=== PATIENT | female | born 1975 | race African-American/Black ===

== ENCOUNTER 2020-02-07 00:14 | Day surgery (SDC) | payer OTHER, SELFPAY ==
[2020-01-31 11:47] VITALS: BMI 32.5
--- NOTE | 2020-02-06 14:18 | WPDANESEPPF ---
Anes - Initial Pre Proc Eval Procedure: Operation Date: 02/07/20 14:15 Proposed Procedures p Hysteroscopy, Mai Endometrial Ablation - Ricco Mar MD Date/Time: 02/06/20 14:18 Surgeon: Ricco Mar MD Pre Op Diagnosis: Menorrhagia Patient Data Age: 44 Gender: F Height: 1.64 m Weight: 87.54 kg Allergies Allergy/AdvReac Type Severity Reaction Status Date / Time No Known Allergies Allergy Verified 02/07/20 13:16 Home Medications Medication Instructions Recorded Confirmed Type ascorbate calcium (vitamin C) 1,000 mg PO DAILY 01/31/20 02/05/20 History cholecalciferol (vitamin D3) 125 mcg PO DAILY 01/31/20 02/05/20 History ferrous sulfate 325 mg PO DAILY 01/31/20 02/05/20 History folic acid 1 mg PO DAILY 01/31/20 02/05/20 History vitamin B complex [B 1 tablet PO DAILY 01/31/20 02/05/20 History Complex-Vitamin B12] Patient hx anesthesia problems: none Family hx anesthesia problems: none [facility] Past Medical History Medical History (Updated 02/06/20 @ 14:18 by Domingo Powell DO) Anemia Social History Social History Smoking status: Never smoker Living arrangements: with family Spiritual care concerns: No Anes - Eval Final PreProcedure Day of Procedure 02/06/20 14:18 Patient weight: obese Heart: regular rate and rhythm Lungs: clear to auscultation and normal air movement Airway: Mallampati scale class II Neurological: alert and oriented Last oral intake: >/= 8 hours ASA classification: II Emergent: no Anesthetic plan: proceed Anesthesia type and monitoring: general GIVS and standard monitoring Informed Consent: The patient's anesthetic plan and its attendant risks and benefits were discussed with the patient/family/POA. Questions were solicited and answers provided to the satisfaction of the patient/family/POA.
[2020-02-07] VITALS (7 sets, daily range): BP systolic 109–186; BP diastolic 79–112; PULSE 75–95; RESP 14–20; TEMP 36.4; O2SAT 96–99
[2020-02-07] MEDS: ACETAMINOPHEN 500 MG TABLET 1000 MG PO (12:23)
[2020-02-07] MEDS: LACTATED RINGERS 1,000 ML 30 ML IV CONT (12:52)
--- NOTE | 2020-02-07 15:08 | WPDHPUPDATE1 ---
History and Physical Update Update Date/Time: 02/07/20 15:08 History and Physical has been reviewed, including an updated exam of the patient. There are NO changes in the patient's condition. Risks, benefits, and alternatives have been discussed and questions answered. Patient agrees to proceed with procedure.
--- NOTE | 2020-02-07 15:58 | SUR.OPER ---
Hysteroscopy irrigation 650ml in and 650ml out
--- NOTE | 2020-02-07 16:10 | PM.PROC ---
Procedure Note - Detailed Date of procedure: 02/07/20 Pre-op diagnosis: Menorrhagia Post-op diagnosis: same Procedure performed: Hysteroscopy D&C, endometrial ablation Description of procedure: The patient was taken the operating room. She has prepped and draped in the dorsal lithotomy position. Speculum was placed the vagina. The cervix grasped with a tenaculum. The cervix was injected at 3 and 9:00 a.m. with 1% lidocaine. The hysteroscope was inserted the intrauterine cavity through the cervix. The above findings were noted. The hysteroscope and uterine sound were used to calculate endometrial cavity length. The endometrial cavity length was entered into the device hand piece. The endometrial cavity was curettaged thoroughly with a medium-size curette. All surfaces were curettaged. The sample was sent to pathology. The device was placed in the intrauterine cavity and the array was expanded. The balloon cuff was inflated. The power and safety checks were initiated. Never completed the array was collapsed and the balloon cuff was collapsed. The device was withdrawn. The hysteroscope was inserted back into the intrauterine cavity and well desiccated endometrial cavity was observed. The speculum was removed. The tenaculum was removed. The patient tolerated procedure well. She is take covering stable condition. Anesthesia: MAC Surgeon: Ricco Mar MD Estimated blood loss (mL): 15 Drains: No Packing: No Pathology: yes Complications: No immediate complications Condition: stable Disposition: PACU Findings: Normal appearing vulva vagina and cervix., normal-appearing intrauterine cavity.
[2020-02-07] MEDS: fentaNYL CITRATE INJ (*CRX) 100 MCG/2 ML VIAL 25 MCG IV PUSH ×2 (16:12→16:46)
[2020-02-07] MEDS: oxyCODONE HCL (*CRX) 5 MG TAB IR PO (17:01)
[2020-02-07] MEDS: hydrALAZINE HCL 20 MG/ML VIAL 10 MG IV PUSH (17:25)
--- NOTE | 2020-03-03 20:32 | PM.IMHP ---
H&P: HPI History of Present Illness Date/Time: 03/03/20 20:32 Chief Complaint: menorrhagia Narrative: Candy Munoz is a 44 year old female With severe menorrhagia and unwanted fertility. We have agreed to perform endometrial ablation and laparoscopic bilateral tubal ligation. She understands there is risk to the surgeries that include injuries. She stands that injuries may result in hospitalization, more surgery, severe illness. She denies any nausea, vomiting, fever, chills. She denies any chest pain or shortness of breath. Review of Systems Constitutional: Constitutional: Reports no additional constitutional complaints, Denies fatigue, Denies headache(s), Denies lethargy and Denies weakness Eyes: Eyes: Reports no additional eye complaints, Denies blurry vision and Denies photophobia ENT: Reports as per HPI, Denies headache(s) and Denies neck pain Cardiovascular: Cardiovascular: Denies chest pain, Denies diaphoresis, Denies leg edema, Denies palpitations and Denies dyspnea Respiratory: Respiratory: Denies hemoptysis, Denies dyspnea and Denies wheezing Gastrointestinal: Gastrointestinal: Denies abdominal pain, Denies melena, Denies bloating, Denies hematochezia, Denies nausea and Denies vomiting Genitourinary: Genitourinary: Reports no additional female genitourinary complaints Musculoskeletal: Musculoskeletal: Denies joint swelling, Denies neck pain, Denies numbness and Denies stiffness Neurologic: Denies Abnormal speech present, Denies confusion, Denies headache(s), Denies numbness and Denies weakness Psychiatric: Psychiatric: Denies anxiety, Denies confusion, Denies depression, Denies homicidal ideation and Denies suicidal ideation Endocrine: Endocrine: Denies fatigue and Denies palpitations Allergic/Immunologic: Allergic/Immunologic: Denies wheezing PMFSH Past Medical History Medical History (Updated 03/03/20 @ 20:34 by Ricco Mar MD) Anemia Social History Social History Smoking status: Never smoker Living arrangements: with family Spiritual care concerns: No Meds Home Medications and Allergies Home Medications Medication Instructions Recorded Confirmed Type ascorbate calcium (vitamin C) 1,000 mg PO DAILY 01/31/20 02/07/20 History cholecalciferol (vitamin D3) 125 mcg PO DAILY 01/31/20 02/07/20 History ferrous sulfate 325 mg PO DAILY 01/31/20 02/07/20 History folic acid 1 mg PO DAILY 01/31/20 02/07/20 History vitamin B complex [B 1 tablet PO DAILY 01/31/20 02/07/20 History Complex-Vitamin B12] Allergies Allergy/AdvReac Type Severity Reaction Status Date / Time No Known Allergies Allergy Verified 02/07/20 13:16 Exam Const: General: healthy appearing, comfortable and no acute distress; No confusion Orientation/consciousness: No confusion Eyes: Direct Ophthalmoscopy: No photophobia Resp: Auscultation: clear to auscultation bilaterally, no rales, no rhonchi and no wheezes Cardio: Rate: regular rate Heart sounds: no click, no murmurs and no rubs GI: Inspection: non-distended GI Palp: No abdominal tenderness Auscultation: normal bowel sounds Neuro: General: No confusion Speech: No Abnormal speech present Extrem: General: normal to inspection, no pedal edema and no calf tenderness Assessment and Plan Assessment and plan (1) Menorrhagia: Code(s): N92.0 - Excessive and frequent menstruation with regular cycle Status: Acute (2) Encounter for female sterilization procedure: Code(s): Z30.2 - Encounter for sterilization Status: Acute Additional Plan this patient is a 44-year-old female With severe menorrhagia and unwanted fertility who presents for endometrial ablation and laparoscopic bilateral tubal ligation. She understands the risks, benefits, and alternatives.
== END 2020-02-07 18:22 | disposition home or self-care (01) ==
PROVIDERS: Visit Provider Obstetrics & Gynecology
PROC: 0U5B8ZZ Destruction of Endometrium, Via Natural or Artificial Opening Endoscopic (ICD-10-PCS; CPT 58563; principal; 2020-02-07 14:15)
DX: N92.0 Excessive and frequent menstruation with regular cycle (principal); D64.9 Anemia, unspecified; E66.9 Obesity, unspecified; Z68.32 Body mass index [BMI] 32.0-32.9, adult
CPT/HCPCS: 58563; A9270; J0360; J2250; J2704; J3010; J7030; J7120

== ENCOUNTER → 2020-06-01 01:09 | Outpatient (CLI) | payer OTHER, SELFPAY ==
[2020-06-01 18:53] LABS: SARS-CoV-2 RNA PCR Negative
== END ==
PROVIDERS: Visit Provider Obstetrics & Gynecology
DX: Z01.812 Encounter for preprocedural laboratory examination (principal); Z20.822 Contact with and (suspected) exposure to COVID-19
CPT/HCPCS: C9803; U0003; U0005

== ENCOUNTER 2020-06-01 08:27 | Outpatient (CLI) | payer OTHER, SELFPAY ==
[2020-06-01 08:49] LABS: Hematocrit 38.5 % (37.0-47.0)
== END 2020-06-01 08:28 | disposition home or self-care (01) ==
PROVIDERS: Referring Provider Anesthesiology; Visit Provider Obstetrics & Gynecology
DX: N92.0 Excessive and frequent menstruation with regular cycle (principal)
CPT/HCPCS: 36415; 85014; 85018; 86850; 86900; 86901; C9803; U0003; U0005

== ENCOUNTER 2020-06-05 01:54 | Day surgery (SDC) | payer OTHER, SELFPAY ==
[2020-05-22 08:35] VITALS: BMI 31.6
[2020-06-05] VITALS (12 sets, daily range): BP systolic 103–154; BP diastolic 67–107; PULSE 66–99; RESP 14–18; TEMP 36.2–36.8; O2SAT 94–100
--- NOTE | 2020-06-05 07:25 | WPDHPUPDATE1 ---
History and Physical Update Update Date/Time: 06/05/20 07:25 History and Physical has been reviewed, including an updated exam of the patient. There are NO changes in the patient's condition. Risks, benefits, and alternatives have been discussed and questions answered. Patient agrees to proceed with procedure.
[2020-06-05] MEDS: LACTATED RINGERS 1,000 ML 30 ML IV CONT ×2 (07:48→11:25)
[2020-06-05] MEDS: KETOROLAC 15 MG/ML VIAL (*BKC) IV PUSH (08:01)
[2020-06-05] MEDS: ACETAMINOPHEN 500 MG TABLET 1000 MG PO (08:01)
--- NOTE | 2020-06-05 08:05 | P.PNAN_ITS ---
Anes - Initial Pre Proc Eval Procedure: Operation Date: 06/05/20 08:30 Proposed Procedures p Total Laparoscopic Hysterectomy with Bilateral Salpingo-Oophorectomy - Ricco Mar MD Date/Time: 06/05/20 08:05 Surgeon: Ricco Mar MD Pre Op Diagnosis: menorrhaghia Patient Data Age: 44 Gender: F Height: 5 ft 4.5 in Weight: 85 kg Allergies Allergy/AdvReac Type Severity Reaction Status Date / Time No Known Allergies Allergy Verified 06/05/20 06:23 Home Medications Medication Instructions Recorded Confirmed Type ascorbate calcium (vitamin C) 1,000 mg PO DAILY 01/31/20 06/05/20 History cholecalciferol (vitamin D3) 125 mcg PO DAILY 01/31/20 06/05/20 History ferrous sulfate 325 mg PO DAILY 01/31/20 06/05/20 History folic acid 1 mg PO DAILY 01/31/20 06/05/20 History vitamin B complex [B 1 tablet PO DAILY 01/31/20 06/05/20 History Complex-Vitamin B12] albuterol 90 mcg INHALATION PRN 05/22/20 06/05/20 History Patient hx anesthesia problems: none Family hx anesthesia problems: none [facility] Past Medical History Medical History (Updated 06/05/20 @ 08:05 by Ty Metcalf MD) Anemia History of hysteroscopy Obesity Social History Social History Smoking status: Never smoker Alcohol intake: current Living arrangements: with family Gender identity (if verbalized by the patient): Female Spiritual care concerns: No Anes - Eval Final PreProcedure Day of Procedure 06/05/20 08:05 Patient weight: obese Heart: regular rate and rhythm Lungs: clear to auscultation Airway: Mallampati scale class II Neurological: alert and oriented Last oral intake: >/= 8 hours ASA classification: II Emergent: no Anesthetic plan: proceed Anesthesia type and monitoring: general ETT and standard monitoring Informed Consent: The patient's anesthetic plan and its attendant risks and benefits were discussed with the patient/family/POA. Questions were solicited and answers provided to the satisfaction of the patient/family/POA.
[2020-06-05] MEDS: ceFAZolin 2 GM/D5W 50 ML 2 GM/50 ML BAG IVPB (09:25)
--- NOTE | 2020-06-05 11:13 | SUR.OPER ---
EBL:20cc
--- NOTE | 2020-06-05 11:27 | P.OP_ITS ---
Procedure Note - Detailed Date of procedure: 06/05/20 Pre-op diagnosis: menorrhaghia Severe menorrhagia Post-op diagnosis: same Procedure performed: Total laparoscopic hysterectomy bilateral salpingo- oophorectomy Description of procedure: The patient was taken to the operating room. She was prepped and draped in the dorsal lithotomy position. A speculum was placed in the vagina. The cervix was grasped with a tenaculum. Stay sutures were placed at 3 and 9:00 a.m. of 0 Vicryl. The stay sutures were brought through the Sofiya up. The WOO manipulator was placed in the vagina with a fixed Sofiya cup. The cup was then pushed up around the cervix. The sutures were tied to the handle of the WOO manipulator. A 5 mm incision was made on the abdominal skin of the left upper quadrant using a scalpel. A 5 mm trocar was inserted into the intra-abdominal cavity under direct visualization the scope. Pneumoperitoneum was achieved. An 11 mm incision was made in the left lower quadrant of the abdomen with a scalpel. A 11 mm trocar was inserted into the intra-abdominal cavity under direct visualization the scope. A 5 mm periumbilical incision was made. A 5 mm scope was placed into the intra-abdominal cavity under direct visualization of the scope. The ureters were identified. The ureters were observed to be away from the infundibulopelvic ligaments. These infundibulopelvic ligaments were isolated, cauterized, and transected with LigaSure cautery. This was done in a bilateral fashion. The para ovarian tissue along the pelvic sidewall was cauterized and transected in a bilateral fashion using the ligature cautery. The round ligaments were cauterized and transected bilaterally with LigaSure cautery. The broad ligaments were cauterized and transected along the lateral aspects of the uterus down the level of the uterine arteries. A bladder flap was created using sharp and blunt dissection. The ureters were dissected out bilaterally down to the level of the uterine arteries. The could be visualized from the pelvic brim down the uterine arteries. Staying very close to the cervix the parametrium was cauterized transected in a stepwise fashion down to the level of the Sofiya cup. The Bladder flap was moved distally over the Sofiya cup using sharp and blunt dissection. The cup was visualized and a complete 360 degree papillary around the cervix. An incision was made with unipolar cautery down under the Sofiya cup creating a colpotomy incision all the way around the cervix. The uterus tubes and ovaries were taken out through the vagina. A pneumo occluder was placed in the vagina. The vagina was closed with 0 V lock suture in a running fashion. The ureters were identified again and found to be intact elevated and the uterine arteries. The pelvis was irrigated with a copious amount of antibiotic irrigation. The pneumoperitoneum was reduced. The trocars were removed. The skin was closed subcuticular 4 Monocryl covered with Dermabond. The pneumo occluder was removed from the vagina. The vagina was irrigated with Betadine. The patient tolerated the procedure well. She was taken to the recovery room in stable condition. Sponge lap and needle counts were correct x2. Anesthesia: GETA Surgeon: Ricco Mar MD Estimated blood loss (mL): 100 Drains: No Packing: No Pathology: yes Complications: No immediate complications Condition: stable Disposition: PACU Findings: Enlarged uterus-mildly, cystic enlarged right ovary adherent to the pelvic sidewall, normal-appearing left ovary and tubes.
[2020-06-05] MEDS: fentaNYL CITRATE INJ (*CRX) 100 MCG/2 ML VIAL 25 MCG IV PUSH ×8 (11:48→12:40)
[2020-06-05] MEDS: KETOROLAC 30 MG/ML VIAL (*BKC) IV PUSH ×2 (12:16→17:44)
[2020-06-05] MEDS: LACTATED RINGERS 1,000 ML 125 ML (14:03)
[2020-06-05] MEDS: HYDROcodone/acetaminophen (*CRX) 10-325 MG TABLET 1 TAB PO (15:02)
[2020-06-05] MEDS: LACTATED RINGERS 1,000 ML 125 ML IV CONT ×2 (15:15→22:00)
--- NOTE | 2020-06-05 15:22 | PC.NURSE ---
1330 Pt admitted to room 286 per stretcher from PACU after Laparoscopic Vag Hysterectomy and BSO today with Dr. Mar. Pt sleepy, but responding appropriately. Made comfortable in bed. Pt's Mother is with her. They were oriented to room, staffing and procedures. Pt's VSS and assessment WNL.
[2020-06-05] MEDS: ESTRADIOL 7 DAY 0.05 MG PATCH TRANSDERM (15:54)
[2020-06-05] MEDS: ONDANSETRON INJ 4 MG/2 ML VIAL IV PUSH (16:13)
[2020-06-05] MEDS: METOCLOPRAMIDE HCL INJ 10 MG/2 ML VIAL IV PUSH (21:04)
[2020-06-06 00:05] VITALS: BP 136/91; PULSE 97; RESP 16; TEMP 36.8; O2SAT 100
[2020-06-06] MEDS: KETOROLAC 30 MG/ML VIAL (*BKC) IV PUSH ×2 (00:10→08:04)
[2020-06-06] MEDS: ONDANSETRON INJ 4 MG/2 ML VIAL IV PUSH (00:11)
[2020-06-06 04:55] VITALS: BP 129/82; PULSE 96; RESP 15; TEMP 36.9; O2SAT 99
--- NOTE | 2020-06-06 08:34 | PM.GYNPNOP ---
[employer] TE[employer] - A/P Postoperative Procedures: Procedures Operation Date: 06/05/20 08:30 Actual Procedures Side Surgeon p Total Laparoscopic Hysterectomy with Bilateral Salpingo-Oophorectomy Bilateral Ricco Mar MD Postoperative day: 1 Postoperative status: doing well and other (Tollerating Regular Diet) Postoperative plan: routine post-op care and discharge Time Spent With Patient Time: Total time spent is greater than 50% in coordination of care (as documented) at patient's floor/unit and/or counseling patient: Time with patient: 15 - 25 minutes [employer]- PN:Subj Post-Op Subjective Date/time seen: 06/06/20 08:34 Subjective: patient reports feeling better, pain is well controlled and patient is tolerating oral intake Exam Const: General: cooperative, healthy appearing, comfortable and no acute distress Resp: Auscultation: no crackles, no rales, no rhonchi and no wheezes Cardio: Rhythm: regular rhythm Heart sounds: no click and no murmurs GI: Inspection: non-distended Auscultation: normal bowel sounds Other: Incisions - CDI Extrem: General: normal to inspection, no pedal edema and no calf tenderness [employer] - PN: Obj Data Vital Signs Vital Signs: Vital Signs - 24 hr 06/05/20 11:25 06/05/20 11:40 06/05/20 11:50 Temperature 97.5 F L Pulse Rate 99 68 66 Respiratory Rate 18 18 18 Blood Pressure 122/107 H 126/95 H 140/82 Pulse Oximetry 100 100 100 06/05/20 12:05 06/05/20 12:20 06/05/20 12:35 Temperature Pulse Rate 81 68 69 Respiratory Rate 18 14 14 Blood Pressure 132/90 127/67 122/88 Pulse Oximetry 100 94 97 06/05/20 12:50 06/05/20 13:05 06/05/20 13:30 Temperature 97.6 F 97.1 F L Pulse Rate 90 79 71 Respiratory Rate 14 14 16 Blood Pressure 106/80 120/84 126/77 Pulse Oximetry 94 96 100 06/05/20 16:00 06/05/20 19:50 06/06/20 00:05 Temperature 97.9 F 98.2 F 98.3 F Pulse Rate 90 81 97 Respiratory Rate 17 17 16 Blood Pressure 129/92 H 154/101 H 136/91 H Pulse Oximetry 100 100 100 06/06/20 04:55 Temperature 98.4 F Pulse Rate 96 Respiratory Rate 15 Blood Pressure 129/82 Pulse Oximetry 99 Intake/Output Intake/Output: Intake & Output 06/03/20 06/04/20 06/05/20 06/06/20 23:59 23:59 23:59 23:59 Intake Total 2200 850 Output Total 2850 4385 Balance -650 -1825 Meds/Results Medications: Active Medications Generic Name Dose Route Start Last Admin Trade Name Freq PRN Reason Stop Dose Admin Hydrocodone Bitart/Acetaminophen 1 tab 06/05/20 13:06 Hydrocodone/Acetaminophen (*Crx) 5-325 Mg Tablet PO Q3H PRN Pain Rated 5 or Less Hydrocodone Bitart/Acetaminophen 1 tab 06/05/20 13:06 06/05/20 15:02 Hydrocodone/Acetaminophen (*Crx) 10-325 Mg Tablet PO 1 tab Q3H PRN Administration Pain Rated 6 or Greater Albuterol 1 puff 06/05/20 13:06 Albuterol Sulfate (*Sp) Aerosol 1 Puff INHALATION 07/05/20 13:07 PRN PRN Shortness Of Breath Estradiol 0.05 mg 06/05/20 13:06 06/05/20 15:54 Estradiol 7 Day 0.05 Mg Patch TRANSDERM 0.05 mg WEEKLY MILAGRO Administration Fentanyl Citrate 50 mcg 06/05/20 14:55 Fentanyl Citrate Inj (*Crx) 100 Mcg/2 Ml Vial IV PUSH Q4H PRN Abdominal Cramping Lactated Ringer's 1,000 mls @ 125 mls/hr 06/05/20 15:15 06/06/20 07:36 Lr - Lactated Ringers Iv IV CONT Not Given .Q8H MILAGRO Ibuprofen 600 mg 06/05/20 13:06 Ibuprofen 600 Mg Tablet PO Q6H PRN Cramping Ketorolac Tromethamine 30 mg 06/05/20 13:06 06/06/20 08:04 Ketorolac 30 Mg/Ml Vial (*Bkc) IV PUSH 06/10/20 13:07 30 mg Q6H PRN Administration Pain Rated 4-6 Metoclopramide HCl 10 mg 06/05/20 20:49 06/05/20 21:04 Metoclopramide Hcl Inj 10 Mg/2 Ml Vial IV PUSH 10 mg Q6HR PRN Administration Nausea And Vomiting Naloxone HCl 0.1 mg 06/05/20 13:06 Naloxone Hcl 0.4 Mg/Ml Vial IV PUSH Q2M PRN Respiratory rate less than 10 Ondansetron HCl 4 mg 06/05/20 13:06 06/06/20 00:11 Ondanset
[2020-06-06 08:55] VITALS: BP 132/85; PULSE 82; RESP 18; TEMP 36.7; O2SAT 100
== END 2020-06-06 09:55 | disposition home or self-care (01) ==
LOC: ANHSURGERY 06:09 → ANHOB2 13:08
PROVIDERS: Visit Provider Obstetrics & Gynecology
PROC: 0UT9FZZ Resection of Uterus, Via Natural or Artificial Opening With Percutaneous Endoscopic Assistance (ICD-10-PCS; CPT 58571; principal; 2020-06-05 08:30)
DX: N92.0 Excessive and frequent menstruation with regular cycle (principal); N84.0 Polyp of corpus uteri; N80.0 Endometriosis of uterus; D25.1 Intramural leiomyoma of uterus; D25.2 Subserosal leiomyoma of uterus; N83.8 Other noninflammatory disorders of ovary, fallopian tube and broad ligament; N73.6 Female pelvic peritoneal adhesions (postinfective); N83.01 Follicular cyst of right ovary; N83.12 Corpus luteum cyst of left ovary; D25.9 Leiomyoma of uterus, unspecified; E66.9 Obesity, unspecified; Z68.32 Body mass index [BMI] 32.0-32.9, adult
CPT/HCPCS: 58571; 88307; 99199; A9270; J0330; J0690; J1100; J1885; J2250; J2405; J2704; J2710; J2765; J3010; J7120